=== PATIENT | female | born 1950 | race Caucasian/White ===

== ENCOUNTER 2016-08-27 06:20 | Observation (INO) | payer OTHER ==
[2016-08-27] VITALS (12 sets, daily range): BP systolic 111–138; BP diastolic 50–85; PULSE 69–85; TEMP 36.5–37; O2SAT 91–96; Ht 162.6 cm; Wt 75.4 kg
[~2016-08-27] VITALS: Ht 162.6 cm; Wt 75.4 kg
[~2016-08-27 06:20] MED LIST: ADVIN50050 INH; ALBU1AER9; ALPR-411 PO; CLX20 PO; ENOX30IN4 SQ; FLV1 PO; HYDR-3983 PO; MELO15TA3 PO; OXYC-57 PO; OXYSR10 PO; PRED-301 PO
[2016-08-27] MEDS ORDERED: ADVIN25/60 INH (07:48)
[2016-08-27] MEDS ORDERED: METO25TA3 PO (07:49)
[2016-08-27] MEDS ORDERED: AMLO-110 PO (07:51)
[2016-08-27] MEDS ORDERED: HYDR200T5 PO (07:52)
[2016-08-27] MEDS ORDERED: FLUT0.15 NAE (07:54)
[2016-08-27] MEDS ORDERED: ASPI81TA28 PO (07:55)
[2016-08-27] MEDS ORDERED: ASCO500T16 PO (07:56)
[2016-08-27] MEDS ORDERED: CALC-354 PEG (07:57)
--- NOTE | 2016-08-27 08:15 | Procedure Note ---
Pre-Mod Sedation Assessment General Date of Moderate Sedation: Aug 27, 2016. Vital Signs: Vital Signs Past 12 Hours Date Time Temp Pulse Resp B/P Pulse Ox O2 Delivery O2 Flow Rate FiO2 08/27/16 07:09 36.7 69 18 138/50 95 Room Air Review Cardiovascular: regular rate, rhythm Abdomen: soft Lungs: lungs clear Airway Class: II Pre-Sedation Airway Assessment Oral Cavity: WNL Short Thick Neck: No Hx of Sleep Apnea: No Smoking Status: Current Every Day Smoker Mallampati Classification: Class II ASA Classification: Class II Procedure Planning Contraindications-for Mod Sed: None Yes Notes The planned sedation has been discussed with the patient and consent obtained. I have identified the patient, determined the appropriateness of sedation and have assessed the patient immediately prior to the procedure. All medicine(s) and interventions are by my order.
--- NOTE | 2016-08-27 08:15 | History & Physical Bridge Note ---
H&P Re-Evaluation Bridge Note: I have examined the patient, reviewed the History & Physical and in the interval since the performance of the History & Physical I have noted the following changes of clinical significance: No changes noted
[2016-08-27] MEDS ORDERED: MIDAZOLAM HCL 5 MG/ML 1 ML VIAL ONE ×3 (08:21→10:57)
[2016-08-27] MEDS ORDERED: FENTANYL CITRATE INJ 50 MCG/1 ML 2 ML VIAL ONE ×3 (08:21→10:57)
[2016-08-27] MEDS ORDERED: ISOPROTERENOL 200 MCG / 50ML D5W IV ONE (09:43)
--- NOTE | 2016-08-27 11:47 | Procedure Note ---
Post-Mod Sedation Assessment General Date of Moderate Sedation Aug 27, 2016. Vital Signs: Vital Signs Past 12 Hours Date Time Temp Pulse Resp B/P Pulse Ox O2 Delivery O2 Flow Rate FiO2 08/27/16 08:54 70 14 93 Room Air 08/27/16 07:09 36.7 69 18 138/50 95 Room Air Review - Discharge Criteria Vital Signs Stable: Yes Alert/Oriented/Conversant: Yes Returned to Baseline Mental St: Yes Nausea Absent/Minimal: Yes Pain/Discomfort/Absent/Minimal: Yes Normal/Baseline Respirations: Yes Active Bleeding?: No Pt Received D/C Instructions: N/A Prescriptions Given: None Specific Proced. D/C Criteria Distal Pulses Present (Cardiac: Yes Groin site assessed-Card Cath: Yes Voided Prior To Discharge: N/A Discharged Patients Adult Escort/Transportation: N/A
--- NOTE | 2016-08-27 11:49 | [facility] Post Operative Brief Note ---
Immediate Operative Summary Operative Date Aug 27, 2016. Pre-Operative Diagnosis svt Post-Operative Diagnosis inducible avnrt Procedure(s) Performed eps, isoprel infusion, 3d mapping his bundle and C/S os, LA pacing, radiofrequency ablation of slow pathway Surgeon rachel villarreal Lithograph Press Feeder Surgeon(s) none Estimated Blood Loss <5cc Findings see official dictated op note Fluids (cc crystalloids) 120cc Specimens none Drains none Anesthesia 10mg versed and 250mcg fentanyl Complication(s) None Disposition PCU
--- NOTE | 2016-08-27 11:53 | Discharge Instructions ---
Discharge Instructions Admission Reason for Admission: Svt Dr Mazariegos To Do Discharge Discharge Diagnosis / Problem: avnrt Discharge Goals Goal(s): Improve function Activity Recommendations Activity Limitations: as noted below Lifting Limitations: no more than 10 pounds (for 1 week) . Current Hospital Diet Patient's current hospital diet: Regular Diet Discharge Diet Recommended Diet: Regular Diet Procedures Procedures Performed: eps, isoprel infusion, 3d mapping his bundle and C/S os, LA pacing, radiofrequency ablation of slow pathway Pending Studies Studies pending at discharge: no Medical Emergencies . Who to Call and When: Medical Emergencies: If at any time you feel your situation is an emergency, please call 911 immediately. . Non-Emergent Contact Non-Emergency issues call your: Service Desk Specialist . . "Provider Documentation" section prepared by Karina Mazariegos. VTE Core Measure Inpt VTE Proph given/why not?: Treatment not indicated
--- NOTE | 2016-08-27 11:57 | Discharge Summary ---
Discharge Summary Admission Date: 08/27/2016 Discharge Date: Aug 28, 2016 Discharge Disposition: Home Principal Diagnosis: avnrt Secondary Diagnoses/Problems: htn asthma Procedures: eps, isoprel infusion, 3d mapping of his bundle and c/s os, slow pathway modification Medication Reconciliation Continued Medications: Albuterol (Proair Hfa) Aers DAILY Alprazolam (Xanax) 0.5 Mg Tab 0.5 MG PO TID PRN for anxiety or sleep, 0 Refills Amlodipine (Norvasc) 5 Mg Tab 7.5 MG PO DAILY, TAB Ascorbic Acid (Ascorbic Acid) 500 Mg Tab 500 MG PO DAILY, TAB Aspirin (Aspirin Ec) 81 Mg Tab 81 MG PO DAILY Calcium Carbonate-Cholecalcife (Caltrate 600+D) 1 Tab Tab 1 TAB PEG DAILY Fluticasone Prop/Salmeterol (Advair Diskus 250/50 60 Dose) 1 Ea Aerp 1 PUFFS INH BID for 90 Days, #3 INHALER 3 Refills Fluticasone Propionate (Nasal) (Flonase Allergy Relief) 50 Mcg/Act Spr 1 SPRAY KULDIP DAILY Hydroxychloroquine Sulfate (Plaquenil) 200 Mg Tab 200 MG PO DAILY, TAB Discontinued Medications: Metoprolol Succ (Toprol Xl) (Toprol-Xl) 25 Mg Tabcr 25 MG PO DAILY, #30 TAB Admission Information Physical Exam (per Admitting): aaox3, nad supple no jvd normal s1s1 no murmur slight wheezed diffuse soft abd no edema no focal deficits Hospital Course pt was admitted for elective EPS +/- ablation due to SVT. 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 She was monitored overnight and discharged home in stable condition following morning. Total time spent on discharge = This includes examination of the patient, discharge planning, medication reconciliation, and communication with other providers. Discharge Instructions ACTIVITY RECOMMENDATIONS: It is common to feel weak and fatigue for a few days. * Do not drive or operate any motorized equipment for the next one day. * Limit stair usage (2 or 3 trips a day only) for the next one days. * Do not lift anything heavier than 10 pounds for the next 7 days. * Do not engage in vigorous exercise or any sports for the next five days. * You may shower the day after your procedure, but do not immerse the area for three days. Cleanse the site gently with soap and water. SPECIAL CARE INSTRUCTIONS: * You may replace the pressure dressing or band-aid the morning after the procedure. * After your procedure, it is normal to have a small bruise or small lump at the site. Examine your site daily for any change in the bruise or lump, redness, swelling, drainage or numbness. Notify your doctor if any change. BLEEDING: * If there is a small amount of bleeding at the site, lie down and apply firm pressure with a clean cloth for ten minutes. When the bleeding stops, lie quietly keeping the procedure limb straight for six hours. Notify your doctor as soon as possible. * If the bleeding does not stop after ten minutes or if there is a large amount of bleeding or spurting, call 911 immediately. Continue to lie down and hold firm pressure until help arrives. SKIN IRRITATION: * You may experience some redness and/or swelling in the area where radiation was administered. If any skin irritation occurs, please contact your family physician. FOLLOW UP VISIT: Keep any scheduled doctor appointments.
[2016-08-27] MEDS ORDERED: ALPRAZOLAM 0.5 MG TAB PO PRN (12:00)
[2016-08-27] MEDS ORDERED: ACETAMINOPHEN 325 MG TAB PO PRN (12:00)
[2016-08-27] MEDS ORDERED: ALBUTEROL HFA 8 GM INHALER INH PRN (12:00)
[2016-08-27] MEDS ORDERED: IV FLUIDS COMPLETED PRN (13:45)
--- NOTE | 2016-08-27 16:09 | OPERATIVE REPORT ---
DATE OF OPERATION: 08/27/2016 PREOPERATIVE DIAGNOSIS: Supraventricular tachycardia. POSTOPERATIVE DIAGNOSIS: Inducible atrioventricular davion reentrant tachycardia. PROCEDURE PERFORMED: Electrophysiology study, isuprel drug challenge infusion, LA pacing from CS catheter, 3D mapping of the His bundle and coronary sinus os, radiofrequency slow pathway modification ablation. SURGEON: Dr. Karina Mazariegos. ASSISTANTS: None. COMPLICATIONS: None. CONDITION: Stable. URINE OUTPUT: Not applicable. ASSISTANTS: None. FINDINGS: See below. ANESTHESIA: Monitored conscious sedation, total of 10 mg of Versed, 250 mcg of fentanyl, start time 9:13, end time 11:45. IV FLUIDS: 120 mL. BLOOD LOSS: Less than 5 mL. INDICATIONS: This is a 66-year-old female with past medical history of hypertension, mild persistent asthma, prior tobacco use, history of PE back in 1998 and 1999 unprovoked, no longer on Coumadin, depression and rheumatoid arthritis. She ended up in [facility] with SVT, short RP requiring adenosine, ended up starting on metoprolol and was referred to EP. She wanted to proceed with an electrophysiology study plus or minus ablation for her SVT. CONSENT: Consent was obtained prior to the patient going into the electrophysiology lab. The patient was informed of risks, benefits, alternatives to the procedure. Risks include but not limited to sudden cardiac , cardiac arrhythmias, cerebrovascular accident, myocardial infarction, injury to the blood vessels, chamber of the heart or the [place] electrical system where she would need a permanent pacemaker, bleeding and infection. The patient understood these risks and agreed to the procedure as planned. Informed consent was obtained. DESCRIPTION OF THE PROCEDURE: The patient was brought into the electrophysiology lab in a fasting state. She was connected to continuous cardiac monitoring. A timeout was performed to ensure patient's identity and procedure correctly. The patient was prepped and draped over the bilateral groins in normal surgical standard fashion. Moderate conscious sedation was given throughout the procedure for patient's comfort level. Monument precautions were maintained throughout the procedure. Lidocaine 10 mL of 1% were given for local anesthesia in the bilateral groins. Using modified Seldinger technique, venous access was obtained in the following matter. The left femoral vein a 6-Bolivian sheath followed by a [place] quad diagnostic catheter positioned into the right ventricular apex. A 7-Bolivian sheath followed by initially Hisser catheter, however it was not really sitting nice on the His bundle so I switched this out for [place]nand F His catheter that was positioned over the His bundle. A 7-Bolivian sheath followed by a Decapolar coronary sinus Biosense DF curve catheter positioned out into the coronary sinus. The right femoral vein had a 6-Bolivian sheath followed by a [employer] quad diagnostic quad catheter positioned in the high rate atrium. Electrophysiology study was done with the following findings: 1. AZ interval 146 milliseconds, QRS 94 milliseconds, QT 392 milliseconds. 2. Sinus cycle length 834 milliseconds, AH 88 milliseconds, HV 36 milliseconds. 3. With atrial burst pacing from the high right atrium, the AV Wenckebach was found to be 360 milliseconds. 4. With atrial extrastimuli, the atrial ERP was found to be 600/250 and 450/250. Of note, the AV davion ERP was less than or equal to the atrial ERP. With right ventricular extra stimuli the right ventricular ERP was found to be 600/240 and 400/230. 5. With high rate there was no inducible arrhythmia. We did pacing from the coronary sinus catheter for LA pacing and we did not induce any arrhythmias. 6. Pacing doubles from the high right atrium up to doubles we did not induce any arrhythmias. 7. Two of isuprel was started and during the infusion of the 2 of isuprel we were getting a moderate response. We did induce a tachycardia with doubles from the high rate atrium at 450/240/220. The tachycardia cycle length was 260 milliseconds. The VA conduction was concentric with the VA time from the right ventricular apex at the high right atrium being 32 milliseconds. With atrial burst entrainment with atrial pacing there was AV dissociation and the arrhythmia broke with entrainment with ventricular pacing. It was at this point that we diagnosed inducible AVNRT and we set up for an ablation. An additional 5 mL of 1% lidocaine were given in the right femoral groin. Venous access was obtained using the modified Seldinger technique and an SR 0 sheath was advanced over the guidewire without any resistance. The wire and dilator were removed and the ablation catheter Biosense Navistar DF curve 4 mm catheter was inserted up into the heart. We 3D mapped the His bundle as well as the coronary sinus os. We then positioned the catheter on the low right atrial septum and gave a series of radiofrequency ablations at 35 [place] for no longer than 15 seconds. Eventually we did get some junctional. Of note on one of the ablations when I was on for less than maybe about 5 seconds. She did have a 5.5 second pause. We immediately went on pacing from the right ventricular apex and her [place] conduction did return. We then removed the ablation catheter from the heart and did post-ablation #1 electrophysiology study with the following findings: Sinus cycle length 814 milliseconds, AH 86 milliseconds, HV 28 milliseconds, the [place] interval was 384 milliseconds, QRS was 70 milliseconds and the QT was 378 milliseconds with atrial burst pacing from the high right atrium, AV Wenckebach was 330 milliseconds with a right atrial extrastimuli. Atrial ERP was 600/280 and 450/260. The AV davion ERP was less than or equal to the atrial. Right ventricular ERP was 600/230 and 400/210. We did start Isuprel at 2 and I did reinduce the tachycardia with triples from the high right atrium at 450 280, 270 and 240. Tachycardia cycle length was a little slower at 294 milliseconds but there is still VA conduction with concentric retrograde VA conduction. So we went back to do more ablation. This time we were a little bit more towards the septum near the CS os but right in the same vicinity where we had a few junctionals trying to stay away from that one area where I had some heart block. We gave a series of a few more ablations and we did get junctionals, did not have any more heart block. Then we did another repeat electrophysiology study. Electrophysiology study findings post-ablation #2: Sinus cycle length 670 milliseconds, AH 100 milliseconds, HV 36 milliseconds, AV Wenckebach 300 milliseconds, atrial ERP was 600/260 and 400/230. The AV node ERP was less than or equal to atrium, the right ventricular ERP was 600/220 and 400/200. We then did not have any inducible SVT or any inducible SVT up to doubles from the high right atrium and coronary sinus then started isuprel at 2 and I did electrophysiology study on isuprel of 2 once I got a good adequate response. Post-ablation sinus cycle length was 800 and then Isuprel at 2 sinus cycle length 660, AH 84, HV 32. AV Wenckebach was 260, the AV node ERP was 450/220. The atrial ERP was 450/200. RV ERP was 450/200. There was no inducible arrhythmia on isuprel of 2 up to triples from the high right atrium. We deemed our procedure successful. All the catheters were removed from the heart and the sheaths were pulled and manual compression was used to obtain hemostasis. IMPRESSION: 1. Inducible atrioventricular davion reentrant tachycardia. 2. Successful slow pathway modification. 3. Normal atrioventricular davion conduction. PLAN: Monitor patient overnight, 12-lead ECG. She can stop her metoprolol. No heavy lifting or squatting for a week and she should follow up in my [place] office in 1 month. I attest to the content of the Intraoperative Record and any orders documented therein. Any exceptio ns are noted below.
[2016-08-27] MEDS: FLUTICASONE/SALMETEROL 250/50 (ADVAIR) 14 PUFF/1 INHALER INH SCH (20:23)
[2016-08-28 03:50] VITALS: BP 159/83; PULSE 79; TEMP 36.8; O2SAT 91
[2016-08-28 07:22] VITALS: BP 151/78; PULSE 68; TEMP 37; O2SAT 93
[2016-08-28] MEDS: FLUTICASONE/SALMETEROL 250/50 (ADVAIR) 14 PUFF/1 INHALER INH SCH (07:58)
[2016-08-28] MEDS ORDERED: ASCORBIC ACID 500 MG TAB PO SCH (09:00)
[2016-08-28] MEDS ORDERED: FLUTICASONE PROPIONATE NA SPR 16 GM BTL NAE SCH (09:00)
[2016-08-28] MEDS ORDERED: ASPIRIN 81 MG ECTAB PO SCH (09:00)
[2016-08-28] MEDS ORDERED: AMLODIPINE BESYLATE 5 MG TAB PO SCH (09:00)
[2016-08-28] MEDS ORDERED: HYDROXYCHLOROQUINE SULFATE 200 MG TAB PO SCH (09:00)
--- NOTE | 2016-08-28 09:04 | Cardiology Follow-Up ---
Subjective Subjective Date of Service: Aug 28, 2016. Pt evaluation today including: conversation w/ patient, physical exam, chart review, lab review, review of studies Pain: none Voiding: no voiding problems Review of Systems Constitutional: No fever Respiratory: No shortness of breath, No wheezing Cardiac: No chest pain, No edema, No palpitations Abdomen: No diarrhea, No nausea Endo: No fatigue Objective Vital Signs Last Vital Signs Documentation Date Time Temp Pulse Resp B/P Pulse Ox O2 Delivery O2 Flow Rate FiO2 08/28/16 07:22 37.0 68 18 151/78 93 Room Air 08/27/16 11:55 2 Physical Exam: General Appearance: WD/WN, no apparent distress Eyes: bilateral eyes EOMI, bilateral eyes PERRL Neck: supple, no JVD Respiratory/Chest: lungs clear, normal breath sounds Cardiovascular: regular rate, rhythm, no edema, + systolic murmur Abdomen: soft (b/l groins soft and non tender no hematoma) Neurologic/Psychiatric: alert, oriented x 3 Skin: warm/dry, no rash Assessment and Plan Impression: 1. AVNRT s/p slow pathway modification 2. HTN 3. Asthma Plan: -Ok for discharge home today -Stop metoprolol -Continue home medications -F/u in my office in 1 month -No heavy lifting or squatting for 1 month Discharge planning: home Medications: Medications Administered Medications (Trade) Dose Ordered Sig/Boris Route Start Time Stop Time Status Last Admin Dose Admin Amlodipine Besylate (Norvasc Tab) 7.5 mg DAILY PO 08/28/16 09:00 09/27/16 08:59 08/28/16 07:59 7.5 MG Ascorbic Acid (Vitamin C Tab) 500 mg DAILY PO 08/28/16 09:00 09/27/16 08:59 08/28/16 07:59 500 MG Aspirin (Ecotrin Tab) 81 mg DAILY PO 08/28/16 09:00 09/27/16 08:59 08/28/16 08:00 81 MG Salmeterol Xinafoate/ Fluticasone (Advair Diskus 250/50 Inh) 1 puff BID INH 08/27/16 21:00 09/26/16 20:59 08/28/16 07:58 1 PUFF Hydroxychloroquine Sulfate (Plaquenil Tab) 200 mg DAILY PO 08/28/16 09:00 09/27/16 08:59 08/28/16 08:00 200 MG Lab Results: Telemetry:SR ECG: SR
[2016-08-28 09:44] VITALS: BP 151/78; PULSE 68; TEMP 37; O2SAT 93
== END 2016-08-28 10:26 | disposition home or self-care (01) ==
LOC: C.EP 06:20 → C.2T 11:52
PROVIDERS: ADMIT Internal Medicine; ATTEND Internal Medicine
DX: I47.1 Supraventricular tachycardia (principal); I10 Essential (primary) hypertension; M06.9 Rheumatoid arthritis, unspecified; J45.909 Unspecified asthma, uncomplicated; F32.9 Major depressive disorder, single episode, unspecified; Z79.82 Long term (current) use of aspirin; Z83.3 Family history of diabetes mellitus; Z82.49 Family history of ischemic heart disease and other diseases of the circulatory system

== ENCOUNTER → 2016-10-23 | Outpatient (CLI) | payer OTHER ==
[~2016-10-23] MED LIST changes: +ADVIN25/60 INH; -ADVIN50050 INH; +AMLO-110 PO; +ASCO500T16 PO; +ASPI81TA28 PO; +CALC-354 PEG; -CLX20 PO; -ENOX30IN4 SQ; +FLUT0.15 NAE; -FLV1 PO; -HYDR-3983 PO; +HYDR200T5 PO; -MELO15TA3 PO; -OXYC-57 PO; -OXYSR10 PO; -PRED-301 PO
[2016-10-23 13:22] LABS: BASO % 0.6 %; BASO ABS # 0.05 K/uL (0-0.2); COMPLETE YES; EOS % 2.7 %; IG% 0.1 %; LYMPH % 17.7 %; LYMPH ABS # 1.49 K/uL (1.2-3.4); MEAN CELL VOLUME 96.8 fL (80-100); MEAN CORPUSCULAR HGB CONC 33.1 g/dl (32-36); MEAN PLATELET VOLUME 10.1 fL (7.4-10.4); MONO % 5.6 %; NEUT % 73.3 %; PLATELET COUNT 317 K/uL (130-400); RED BLOOD COUNT 4.03 M/uL (4.2-5.4); WHITE BLOOD COUNT 8.41 K/uL (4.8-10.8)
[2016-10-23 13:50] LABS: AST/SGOT 14 U/L (15-37); CREATININE 0.93 mg/dl (0.60-1.20)
[2016-10-23 13:54] LABS: ALKALINE PHOSPHATASE 108 U/L (45-117); ALT/SGPT 24 U/L (12-78)
== END | disposition home or self-care (01) ==
LOC: C.LAB1850 11:50
PROVIDERS: ATTEND Internal Medicine Rheumatology
DX: M06.9 Rheumatoid arthritis, unspecified (principal); Z79.899 Other long term (current) drug therapy; M15.9 Polyosteoarthritis, unspecified; M54.5 Low back pain

== ENCOUNTER → 2017-10-15 | Outpatient (CLI) | payer OTHER ==
[2017-10-15 15:49] LABS: BASO % 0.5 %; BASO ABS # 0.03 K/uL (0-0.2); EOS % 2.3 %; EOS ABS # 0.15 K/uL (0-0.5); HEMATOCRIT 39.2 % (37-47); HEMOGLOBIN 13.1 g/dL (12.0-16.0); IG# 0.01 K/uL (0.00-0.02); LYMPH % 24.4 %; MEAN CELL VOLUME 97.5 fL (80-100); MEAN CORPUSCULAR HEMOGLOBIN 32.6 pg (25-34); MEAN CORPUSCULAR HGB CONC 33.4 g/dl (32-36); MONO % 8.4 %; MONO ABS # 0.55 K/uL (0.11-0.59); NEUT % 64.2 %; NEUT ABS # 4.23 K/uL (1.4-6.5); PLATELET COUNT 310 K/uL (130-400); RED CELL DISTRIBUTION WIDTH SD 46.5 fL (36.4-46.3); WHITE BLOOD COUNT 6.57 K/uL (4.8-10.8)
[2017-10-15 17:32] LABS: ALBUMIN 3.7 gm/dl (3.4-5.0); ALT/SGPT 22 U/L (12-78); CREATININE 0.89 mg/dl (0.60-1.20); URIC ACID 4.5 mg/dl (2.6-7.2)
[2017-10-15 17:33] LABS: ALKALINE PHOSPHATASE 111 U/L (45-117); AST/SGOT 16 U/L (15-37); TOTAL PROTEIN 7.4 gm/dl (6.4-8.2)
== END | disposition home or self-care (01) ==
LOC: C.LAB1850 14:34
PROVIDERS: ATTEND Internal Medicine Rheumatology
DX: M06.9 Rheumatoid arthritis, unspecified (principal); Z79.899 Other long term (current) drug therapy; M15.9 Polyosteoarthritis, unspecified